=== PATIENT | female | born 1995 | race African-American/Black ===

== ENCOUNTER 2019-02-25 09:11 | Emergency (ER) | payer MEDICAID ==
[~2019-02-25] VITALS: Ht 170.2 cm; Wt 55.0 kg
[2019-02-25] MEDS ORDERED: SODIUM CHLORIDE 0.9% 1,000 ML IV ONE (11:00)
[2019-02-25 11:51] LABS: BASOPHILS % 0.5 % (0.0-2.0); EOSINOPHILS % 1.1 % (0.0-5.0); HEMOGLOBIN. 12.3 g/dL (12.0-16.0); MEAN CORPUSCULAR HEMOGLOBIN 30.7 pg (28.0-32.0); MEAN CORPUSCULAR VOLUME 89.7 fL (81.0-99.0); MEAN PLATELET VOLUME 8.8 fl (7.4-10.4); MONOCYTES % 8.3 % (2.0-8.0); NEUTROPHILS % 63.1 % (40.0-76.0); PLATELET 232 x1000/uL (130-400); RED BLOOD CELL COUNT 4.02 mill/uL (4.2-5.4); RED CELL DISTRIBUTION WIDTH 13.5 % (11.6-14.6)
[2019-02-25 11:56] LABS: CHLORIDE 109 mEq/L (98-107)
[2019-02-25 12:07] LABS: B-HCG QUANTITATIVE < 1 mIU/mL (<3)
[2019-02-25] MEDS ORDERED: METHYLERGONOVINE MALEATE 0.2MG TABLET PO ONE (12:45)
[2019-02-25 13:23] LABS: CLARITY URINE CLOUDY (CLEAR); COLOR URINE RED (YELLOW); KETONES URINE NEGATIVE (NEGATIVE); LEUKOCYTE ESTERASE URINE 2+ (NEGATIVE); NITRITE URINE NEGATIVE (NEGATIVE); OCCULT BLOOD URINE 3+ (NEGATIVE); PROTEIN URINE 1+ (NEGATIVE); SPECIFIC GRAVITY URINE 1.009 (1.005-1.030); UROBILINOGEN URINE 0.2 E.U./dL (0.2-1.0)
[2019-02-25 13:39] LABS: *AMPHETAMINES SCREEN URINE NEGATIVE (NEGATIVE); *BENZODIAZEPINES SCREEN URINE NEGATIVE (NEGATIVE); *COCAINE SCREEN URINE NEGATIVE (NEGATIVE); OPIATES URINE SCREEN NEGATIVE (NEGATIVE)
[2019-02-25 13:40] LABS: PHENCYCLIDINE URINE SCREEN NEGATIVE (NEGATIVE)
[2019-02-25 13:42] LABS: METHADONE URINE SCREEN NEGATIVE (NEGATIVE)
[2019-02-25 13:43] LABS: *BARBITURATES SCREEN URINE NEGATIVE (NEGATIVE)
[2019-02-25 13:54] LABS: CANNABINOID URINE SCREEN PRESUMTIVE POSITIVE (NEGATIVE)
[2019-02-25] MEDS ORDERED: NITROFURANTOIN 100MG M/M CAPSULE PO ONE (14:30)
[2019-02-25 16:00] VITALS: BP 107/71
== END 2019-02-25 16:10 | disposition home or self-care (01) ==
LOC: ER 09:21
DX: N83.202 Unspecified ovarian cyst, left side (principal); A59.03 Trichomonal cystitis and urethritis; N39.0 Urinary tract infection, site not specified; N93.8 Other specified abnormal uterine and vaginal bleeding; F12.288 Cannabis dependence with other cannabis-induced disorder
CPT/HCPCS: 36415; 76830; 76856; 80053; 80305; 80307; 81003; 83605; 84702; 85025; 86850; 86900; 86901; 87040; 87086; 93005; 96360; 96361; 99284; J7030; Z7610